=== PATIENT | male | born 1955 | race Hispanic/Latino ===

== ENCOUNTER 2017-07-27 07:30 | Day surgery (SDC) | payer OTHER ==
[2017-07-27] MEDS ORDERED: TETRACAINE 0.5% OD PRN (08:44)
[2017-07-27] MEDS: VIGAMOX OD SCH ×3 (09:00→09:10)
--- NOTE | 2017-07-27 09:23 | Anesthesia Consultation ---
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 earlier this month. was given antiobiotic course. Course completed. asymptomatic today. HTN is uncontrolled.will treat prior to proceeding
--- NOTE | 2017-07-27 09:24 | Anesthesia Day of Surgery ---
Anesthesia Day of Surgery - Day of Surgery Patient Examined: Yes Patient H&P Reviewed: Yes Patient is NPO: Yes
[2017-07-27] MEDS ORDERED: APRESOLINE IV NR (09:30)
[2017-07-27] MEDS ORDERED: mitoMYcin 0.02% Opth Soln *OR USE ONLY OP NR (10:00)
[2017-07-27] MEDS ORDERED: NACL 0.9% 1000 ML 1,000 ML IV SCH (10:00)
[2017-07-27] MEDS ORDERED: PRED FORTE 1% OD SCH (10:00)
[2017-07-27] MEDS ORDERED: WATER FOR IRRIG STERILE IR ONE (10:25)
[2017-07-27] MEDS ORDERED: SUBLIMAZE ONE (10:28)
[2017-07-27] MEDS ORDERED: VERSED ONE ×2 (10:28→10:47)
[2017-07-27] MEDS ORDERED: XYLOCAINE 2%/ EPI 1:200,000 INFILTRATI ONE (10:48)
[2017-07-27] MEDS ORDERED: APRESOLINE ONE (10:50)
[2017-07-27] MEDS ORDERED: TOBRADEX ONE (11:05)
[2017-07-27] MEDS ORDERED: ROBINUL ONE (11:30)
[2017-07-27] MEDS ORDERED: ePHEDrine SULFATE ONE (11:32)
--- NOTE | 2017-07-27 11:43 | Short Stay Summary ---
Short Stay Documentation Date of service: 07/27/17 - History H&P: obtained from office - Allergies and Medications Current Medications: Allergies No Known Allergies Allergy (Verified 07/25/17 14:52) Home Medications Medication Instructions Recorded Confirmed Last Taken Type Aspirin [Aspir-Low] 81 mg PO DAILY 07/25/17 07/25/17 Unknown History Levothyroxine [Synthroid] 100 mcg PO QAM 07/25/17 07/25/17 Unknown History Lisinopril/Hydrochlorothiazide 1 each PO DAILY 07/25/17 07/25/17 Unknown History [Zestoretic 10-12.5 mg Tablet] Rosuvastatin Calcium [Crestor] 40 mg PO DAILY 07/25/17 07/25/17 Unknown History Sertraline [Zoloft] 100 mg PO QDAY 07/25/17 07/25/17 Unknown History Active Medications Sodium Chloride (Nacl 0.9% 1000 Ml) 1,000 mls @ 75 mls/hr IV DIRECT ANISA Moxifloxacin HCl (Vigamox) 1 drops OD Q5MIN ANISA Stop: 07/29/17 10:01 Last Admin: 07/27/17 09:10 Dose: 1 drops Prednisolone Acetate (Pred Forte 1%) 1 drops OD QID ANISA Stop: 07/27/17 12:00 Tetracaine HCl (Tetracaine 0.5%) 1 drops OD Q5M PRN PRN Reason: Analgesia Stop: 07/27/17 23:59 Last Admin: 07/27/17 08:57 Dose: 1 drops - Brief post op/procedure progress note Date of procedure: 07/27/17 Pre-op diagnosis: temporal conjunctival lesion right eye Post-op diagnosis: same Procedure: Conjunctival lesion excision with mitomycin-C right eye Anesthesia: MAC, local Surgeon: FABRICE CASTILLO Estimated blood loss: none Pathology: list (temporal conjunctival lesion) Specimen disposition: to lab Condition: stable - Disposition Condition at discharge: Good Disposition: - TO HOME OR SELFCARE - Discharge Diagnoses (1) Conjunctival lesion Status: Resolved Short Stay Discharge Plan Follow up with: ROBBIN FARLEY MD [Primary Care Provider] - 7 Days
--- NOTE | 2017-07-27 11:47 | Operative Report ---
Operative Report Operative Report: PREOPERATIVE DIAGNOSIS: Right conjunctival lesion POSTOPERATIVE DIAGNOSIS: same OPERATIVE PROCEDURE: Excision of conjunctival lesion with mitomycin C right eye SURGEON: Crystal Hernandez M.D. [employer] SURGEON: jama ANESTHESIA: Monitored anesthesia care FEED WEIGHER: COMPLICATIONS: None ALLERGIES: [place] PREOPERATIVE NOTE: The risks, benefits and alternatives of surgery were explained to the patient who after confirmining understanding elected to proceed with surgery. The risks discussed included but were not limited to infection, further surgery, loss of vision, loss of the eye. The patient had multiple opportunities to ask questions and have them answered. Preoperative instruction sheet was provided and explained to the patient and/or family. PROGNOSIS: Excellent INDICATIONS FOR SURGERY: Distortion of vision from the lesion. Without treatment , permanent visual loss is expected. OPERATIVE REPORT: The patient was taken into the preoperative area and then sedated and monitored by Anesthesia. The patient was prepped by applying a Betadine scrub to the periorbital area, the adjacent cheek, and the forehead. The prepped areas were dried with sterile gauze. The patient was draped, and a speculum was placed between the eyelids. 2% lidocaine was injected below the body of the lesion. The dissection was then carried towards the limbus, elevating up the pterygium. Moderate bleeding was encountered and treated with cautery. Once the dissection was taken to the limbus and cut with wescotts scirros. After the scar tissue was removed, Mitomycin-C was placed on bare sclera x 60 secs on the eye with Weck-whitney sponges and immediately irrigated off. The irrigation was done liberally to prevent any Mitomycin-C contamination to the rest of the field and the eye. The cornea was irrigated with balanced salt solution. MEDICATIONS APPLIED AT END OF SURGERY: bandage Contact lens was placed onto the eye fallowed by the application of tobradex oint. DISCHARGE SUMMARY: The patient was released in stable condition. The patient and those with the patient were given a written sheet of postoperative instructions and counseling on any abnormal laboratory studies. They are to call immediately for difficulties.
--- NOTE | 2017-07-27 12:23 | Post Anesthesia Evaluation ---
- Post Anesthesia Evaluation Patient Participated: Yes Airway Patent: Yes Stable Respiratory Function: Yes Nausea/Vomiting: No Temp > 96.8F: Yes Pain Manageable: Yes Adequeate Hydration: Yes Anesthesia Complications: No
[2017-07-27] MEDS ORDERED: TOBRADEX OD SCH (14:00)
[2017-07-27 14:19] VITALS: BP 148/79
== END 2017-07-27 14:17 | disposition home or self-care (01) ==
LOC: OR 07:30
DX: H11.9 Unspecified disorder of conjunctiva (principal); L57.8 Other skin changes due to chronic exposure to nonionizing radiation; I10 Essential (primary) hypertension; E05.00 Thyrotoxicosis with diffuse goiter without thyrotoxic crisis or storm; Z85.828 Personal history of other malignant neoplasm of skin; Z95.5 Presence of coronary angioplasty implant and graft; Z79.82 Long term (current) use of aspirin; I25.2 Old myocardial infarction; Z79.899 Other long term (current) drug therapy
CPT/HCPCS: 68110; 88304; 93005; 93010; J0360; J2250; J3010; J7030; J7315